=== PATIENT | female | born 1995 | race African-American/Black ===

== ENCOUNTER 2024-06-14 23:28 | Emergency (ER) | payer SELFPAY ==
[~2024-06-14] VITALS: Ht 165.1 cm; Wt 63.0 kg
[2024-06-14 23:34] VITALS: TEMP 98.1; O2SAT 98
[2024-06-14] MEDS ORDERED: PROPOFOL 10MG/ML 100ML 100 ML IV ONE (23:45)
[2024-06-14] MEDS ORDERED: SUCCINYLCHOLINE CHLORIDE 200MG/10ML IV ONE (23:45)
[2024-06-14] MEDS ORDERED: MIDAZOLAM 100MG/100ML PREMIX IV PRN (23:45)
[2024-06-14] MEDS ORDERED: MIDAZOLAM HCL 100 MG in DEXT 5% WATER 80 ML IV ONE (23:45)
[2024-06-14] MEDS ORDERED: ETOMIDATE 2MG/ML 10ML VIAL IV ONE (23:45)
[2024-06-14 23:56] LABS: CLARITY URINE CLEAR (CLEAR); COLOR URINE YELLOW (YELLOW); GLUCOSE URINE NEGATIVE (NEGATIVE); KETONES URINE NEGATIVE (NEGATIVE); LEUKOCYTE ESTERASE URINE 1+ (NEGATIVE); NITRITE URINE NEGATIVE (NEGATIVE); OCCULT BLOOD URINE NEGATIVE (NEGATIVE); PROTEIN URINE NEGATIVE (NEGATIVE); SPECIFIC GRAVITY URINE 1.005 (1.005-1.030); UROBILINOGEN URINE 0.2 E.U./dL (0.2-1.0)
[2024-06-15 00:05] LABS: *AMPHETAMINES SCREEN URINE PRESUMPTIVE POSITIVE (NEGATIVE); *BARBITURATES SCREEN URINE NEGATIVE (NEGATIVE); *BENZODIAZEPINES SCREEN URINE NEGATIVE (NEGATIVE); *COCAINE SCREEN URINE NEGATIVE (NEGATIVE); CANNABINOID URINE SCREEN PRESUMPTIVE POSITIVE (NEGATIVE); METHADONE URINE SCREEN NEGATIVE (NEGATIVE); OPIATES URINE SCREEN NEGATIVE (NEGATIVE); PHENCYCLIDINE URINE SCREEN PRESUMTIVE POSITIVE (NEGATIVE)
[2024-06-15 00:06] LABS: ECSTASY MDMA SCREEN URINE NEGATIVE (NEGATIVE)
[2024-06-15 00:10] LABS: BASOPHILS % 0.7 % (0.0-2.0); EOSINOPHILS % 2.4 % (0.0-5.0); HEMATOCRIT. 34.1 % (36.0-48.0); HEMOGLOBIN. 11.2 g/dL (12.0-16.0); LYMPHOCYTES % 21.8 % (20.0-50.0); MEAN CORPUSCULAR HEMOGLOBIN 28.5 pg (28.0-32.0); MEAN CORPUSCULAR HGB CONC 32.9 g/dL (31.0-37.0); MEAN CORPUSCULAR VOLUME 86.8 fL (81.0-99.0); MEAN PLATELET VOLUME 8.5 fl (7.4-10.4); MONOCYTES % 4.5 % (2.0-8.0); NEUTROPHILS % 70.6 % (40.0-76.0); PLATELET 344 x1000/uL (130-400); RED BLOOD CELL COUNT 3.93 mill/uL (4.2-5.4); WHITE BLOOD COUNT 10.1 x1000/uL (4.5-11.0)
[2024-06-15 00:26] LABS: CHLORIDE 106 mEq/L (98-107); POTASSIUM 3.2 mEq/L (3.5-5.1); SODIUM 140 mEq/L (136-145)
[2024-06-15 00:27] LABS: CALCIUM 9.7 mg/dL (8.7-10.4); CARBON DIOXIDE 24 mEq/L (21-32)
[2024-06-15 00:32] LABS: CREATININE 0.9 mg/dL (0.6-1.0); GLUCOSE 91 mg/dL (70-105); UREA NITROGEN BLOOD 14 mg/dL (9-23)
[2024-06-15 00:33] LABS: AMMONIA < 17 uMol/L (<32); ETHANOL BLOOD 209 mg/dL (<10)
[2024-06-15 00:34] LABS: ACETAMINOPHEN < 2 ug/mL (10-30); CREATINE KINASE 381 IU/L (34-145); HCG SCREEN NEGATIVE
[2024-06-15 00:42] LABS: TROPONIN I HIGH SENSITIVITY < 4 ng/L (3.0-34)
[2024-06-15] MEDS: NALOXONE HCL 0.4MG/ML 1ML VIAL IV ONE (00:48)
[2024-06-15] MEDS ORDERED: NALO4SPR BOTHNSTRLS (03:04)
[2024-06-15 03:57] VITALS: BP 104/59; PULSE 75; RESP 14; O2SAT 100
[2024-06-15 04:13] LABS: SQUAMOUS EPITHELIAL CELL URINE FEW /lpf (RARE/1+)
[2024-06-15 04:14] LABS: RBC URINE 0-2 /hpf (0-2)
[2024-06-15 04:15] LABS: BACTERIA URINE 2+
== END 2024-06-15 04:14 | disposition home or self-care (01) ==
LOC: EDBD 23:39 → ER 23:39
DX: T65.91XA Toxic effect of unspecified substance, accidental (unintentional), initial encounter (principal); G93.40 Encephalopathy, unspecified; R41.82 Altered mental status, unspecified; F32.9 Major depressive disorder, single episode, unspecified; Y92.89 Other specified places as the place of occurrence of the external cause
CPT/HCPCS: 80305; 80048; 81003; 80307; 80329; 80320; 82140; 82550; 84703; 83605; 85025; 86850; 86900; 86901; 84484; 36415; 71045; 70450; 93005; 99291; 96374; J2310; Z7610; J2250; J7060; G0480